=== PATIENT | female | born 1980 | race Caucasian/White ===

== ENCOUNTER 2018-05-13 12:41 | Observation (INO) | payer OTHER ==
[2018-05-11 12:09] VITALS: BMI 24.4
[2018-05-13 13:35] LABS: BASO % 0.3 % (0.0-2.0); EOS # 0.1 K/uL (0.0-0.7); EOS % 1.6 % (0.0-4.0); HEMOGLOBIN 10.9 g/dL (11.0-16.0); LYMPH # 1.7 K/uL (1.0-4.3); LYMPH % 27.9 % (20.0-40.0); MEAN CELL VOLUME 66.7 fL (81.0-99.0); MEAN CORPUSCULAR HEMOGLOBIN 21.2 pg (27.0-31.0); MEAN CORPUSCULAR HGB CONC 31.8 g/dL (33.0-37.0); MEAN PLATELET VOLUME 10.2 fL (7.2-11.7); MONO # 0.3 K/uL (0.0-0.8); MONO % 5.1 % (0.0-10.0); NEUT % 65.1 % (50.0-75.0); NRBC % 0.1 % (0.0-2.0); RBC 5.13 Mil/uL (3.80-5.20); WHITE BLOOD COUNT 6.2 K/uL (4.8-10.8)
[2018-05-13 13:46] LABS: INR 1.1; PROTHROMBIN TIME 12.4 SECONDS (9.7-12.2)
[2018-05-13 13:49] LABS: BLOOD UREA NITROGEN 7 mg/dL (7-17); CALCIUM 9.4 mg/dl (8.6-10.4); GFR AFRICAN-AMERICAN > 60; GFR NON-AFRICAN AMERICAN > 60
[2018-05-13] MEDS ORDERED: Lactated Ringer's 500 ML IV ONE (15:25)
[2018-05-13] MEDS ORDERED: Midazolam 2 MG/2 ML VIAL ONE (17:21)
[2018-05-13] MEDS ORDERED: Succinylcholine Chloride 20 mg/ml Syr (5 ml) IV ONE (17:21)
[2018-05-13] MEDS ORDERED: Sodium Chloride 0.9% 20 ML IV ONE ×2 (18:04→19:01)
[2018-05-13] MEDS ORDERED: ceFAZolin IV 2 gm in Dextrose 2 GM/50 ML BAG IVPB ONE (18:04)
[2018-05-13] MEDS ORDERED: Bupivacaine 0.25% 20 ML INJ IJ ONE (18:04)
[2018-05-13] MEDS ORDERED: Silver Nitrate Topical - Stick ONE ×2 (20:25→20:41)
[2018-05-13] MEDS ORDERED: Oxycodone/Acetaminophen 5/325 mg Tab PO PRN (21:05)
[2018-05-13] MEDS ORDERED: Dexamethasone 4 mg/1 ml IVP PRN (21:07)
[2018-05-13] MEDS ORDERED: HYDROmorphone 0.5 mg/0.5 ml ISec IVP PRN (21:07)
[2018-05-13] MEDS ORDERED: Lactated Ringer's 1,000 ML IV SCH (21:15)
[2018-05-14 00:02] VITALS: RESP 20
[2018-05-14] MEDS ORDERED: Pneumococcal 23-Valent Vaccine IM ONE (07:00)
[2018-05-14 08:17] VITALS: BP 93/60; PULSE 71; TEMP 98.2; O2SAT 98
--- NOTE | 2018-06-02 17:30 | OP ---
Copied To: Lex Rivera MD Attending MD: Lex Rivera MD PROCEDURE DATE: 05/13/2018 SURGEON: Lex Rivera M.D. MOTOR BOSS: Jaylon Aguilar DO. PREOPERATIVE DIAGNOSES: 1. Pelvic pain. 2. Rule out pelvic endometriosis. 3. Genitourinary pain. 4. Bladder pain, rule out interstitial cystitis. 5. Rule out recurrent fibroid POSTOPERATIVE DIAGNOSES: 1. 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 5. Mild bilateral ureteral dilation. 6. No evidence of interstitial cystitis. 7. Clear uterine cavity PROCEDURES PERFORMED: Cystoscopy with bilateral ureteral catheterization; injection of dye; diagnostic hysteroscopy; operative laparoscopy, robotic da Raquel; excision of endometriosis; treatment of endometriosis; bilateral ureterolysis; and excision of perirectal mass. COMPLICATIONS: None. SAMPLES: Left periureteral, right periureteral, posterior rectal, posterior cervical endometriosis. ESTIMATED BLOOD LOSS: 25 mL FINDINGS: Genitalia: Normal external genitalia, cervix was normal with no lesion or polyps. Hysteroscopy: the patient had a prior intracavitary fibroid. On hysteroscopy we did not visualize polyps or fibroids.. Cystoscopy was performed to rule out endometriosis of the bladder mucosa, also interstitial cystitis, also GI injury. The bladder was normal with no evidence of stone, trigonitis, or cystitis. Positive jet flow visualization in both ureters. Laparoscopy was normal. Gallbladder was normal. Liver edges appeared to be normal. Ascending colon and transverse colon were normal. There was evidence of some pelvic adhesions and fibrosis, and endometriosis of the rectovaginal septum and both ovaries were not affected with significant endometriosis, but were partially attached to the peritoneal side wall. Fallopian tubes appeared to be normal and patent. There was also evidence of endometriosis of the rectovaginal septum and cul-de-sac and there were mild bilateral hydroureters. CONSENT: The patient had been thoroughly evaluated and counseled regarding the pros and cons of the procedure, the reasonable alternatives, and the possible complications. She understood and accepted the risks involved. Appropriate literature was provided to the patient. The patient was understanding. Given her history and presurgical exam, there was higher risk in the average patient. She accepted the risks involved, and all the questions and had been answered to her satisfaction. DESCRIPTION OF PROCEDURE: Initiation of the case: After adequate anesthesia was obtained, the patient was placed in the dorsal lithotomy position with extreme care, placement of the patient with hyperextension and hyperflexion of the hips. At this point, the patient was prepped and draped. The surgeon was gowned and gloved. A timeout was taken according to the hospital policies and procedures, and the procedure was started. At this point, we performed the cystoscopy and bilateral ureteral catheterization. A cystoscope was inserted into the bladder under direct visualization and the bladder was visualized. The bladder was free of lesions and tumors. There was no evidence of interstitial cystitis, and there was no trigonitis. At this point, both ureters were identified and appeared to be in normal anatomical position. At this point, an open-ended 5-Kiswahili catheter, the left ureter was used to catheterize the left ureter all the way to the distal ureter and 5 mL of IC-Green was injected into the distal ureter. Similarly, on the contralateral ureter, the ureter was catheterized all the way to the distal ureter, and 5 mL of IC-Green was injected into the distal ureter. At this point, the stents were removed, and the cystoscope was removed, and the 16-Kiswahili Roberson was placed into the bladder. At this point, we proceeded with the hysteroscopy. A speculum was placed into vagina, and the anterior lip of the cervix was grasped. The cervix was ligated, and a hysteroscope was inserted into uterine cavity. The cavity appeared to be of normal size with no evidence of fibroids or lesions or polyps. At this point, we proceeded with placement of the trocars and docking of the da Raquel Xi robot. The surgeon was re-gowned and re-gloved, and open laparoscopy was performed by making incision below the umbilicus and the fascia was incised and the peritoneum was entered in the blunt fashion. The cannula was inserted and the abdomen was insufflated and under direct visualization, three additional ports were inserted in the left upper quadrant, left mid quadrant, and right upper quadrant. At this point, the da Raquel Xi robot was brought into the field and docked, and the instruments were inserted under direct visualization with extreme care not to injure the bowel or any another area. As per the dictation, the upper abdomen appeared to be normal with no evidence of lesions. The pelvis with the findings as described above which included adhesions and fibrosis on the posterior cul-de-sac and endometriotic lesions. At this point, we proceeded with the left ureterolysis. The ureter appeared to be dialled, was identified with fluorescent and da Raquel technology. An incision was made on the peritoneum at the top of the pelvic brim and the incision was then carried down all the way opening the peritoneum all the way down from the pelvic brim, all the way down to the ovarian fossa, extending the incision below the ovary. This was a progressive dissection where the ureter was lateralized. At this point, the ureter was freed and lateralized, and larger peritoneum was taken out and sent to pathology. At this point, we proceeded with a left ovariolysis. The left ovary was gently dissected and elevated and fibrosis was removed and exposed. At this point, we proceeded with a right ureterolysis. The ureter was then identified on the right hand side utilizing fluorescent technology. The retroperitoneal space was entered and a full dissection was performed and entered the retroperitoneal space dissecting the ureter and removing the peritoneum medially. A full dissection of this was performed all the way down to the ovarian fossa and a larger peritoneum containing endometriosis was dissected off and sent to Pathology. At this point, we proceeded with a right ureterolysis. The ovary was progressively elevated. Areas of superficial endometriosis was dissected from the ovary and finally elevated. At this point, we proceeded with treatment of endometriosis and excision of endometriosis. On the left hand side, the peritoneum containing endometriosis was excised and the ovarian fossa with the aforementioned excision beginning at utero-ovarian ligament all the way down to the uterosacral ligament. Large areas of fibrosis were identified in the posterior cul-de-sac and the rectovaginal space was affected with endometriosis and fibrosis. The rectovaginal area was dissected and the space was opened and the rectum was dissected off. Areas of endometriosis were dissected from both the posterior aspect of the uterus and the cul-de-sac area on the right and left side. At this point, excision of the endometriosis on the right hand side was performed after the ureter already being dissected and large area of peritoneum containing endometriosis was also excised. At his point the Jplasma was used to ablate areas of peritoneum that did not have endometriosis but had clear signs of inflammation. At this point, it was checked for hemostasis what appeared to be excellent. The pelvis was irrigated. The da Raquel Xi robot was undocked. The instruments were removed. The incisions were closed with 0 PDS for the fascia and 4-0 Monocryl for the skin. At the end of the procedure, all tips and instrument counts were correct. The patient tolerated the procedure well and was taken to the recovery room in excellent condition. Lex Rivera MD MTDD
== END 2018-05-14 09:40 | disposition home or self-care (01) ==
LOC: C.SDS 12:41 → C.9S 21:04 → C.3T 21:35
PROVIDERS: ADMIT Obstetrics & Gynecology Reproductive Endocrinology; ATTEND Obstetrics & Gynecology Reproductive Endocrinology
DX: N80.0 Endometriosis of uterus (principal); N80.4 Endometriosis of rectovaginal septum and vagina
CPT/HCPCS: 36415; 57061; 58662; 80048; 84703; 85025; 85610; 85730; 86850; 86900; 88304; 88312; G0378; J0690; J1885; J2001; J2250; J2405; J2765; J3010; J7120